=== PATIENT | female | born 1990 | race Caucasian/White ===

== ENCOUNTER 2021-11-12 17:00 | Outpatient (CLI) | payer BC | END 2021-11-12 17:01 | disposition home or self-care (01) | LOC: SLEEPLAB 17:00 | PROVIDERS: ATTEND Internal Medicine Critical Care Medicine | DX: G47.33 Obstructive sleep apnea (adult) (pediatric) (principal); G47.31 Primary central sleep apnea | CPT/HCPCS: 95806 ==

== ENCOUNTER 2021-12-06 19:30 | Outpatient (CLI) | payer BC | END 2021-12-06 19:31 | disposition home or self-care (01) | LOC: SLEEPLAB 19:30 | PROVIDERS: ATTEND Internal Medicine Critical Care Medicine | DX: G47.33 Obstructive sleep apnea (adult) (pediatric) (principal); R06.83 Snoring; G47.10 Hypersomnia, unspecified; G47.31 Primary central sleep apnea; E66.9 Obesity, unspecified; Z68.22 Body mass index [BMI] 22.0-22.9, adult | CPT/HCPCS: 95811 ==